=== PATIENT | female | born 1985 | race Caucasian/White ===

== ENCOUNTER 2017-03-09 11:40 | Outpatient (CLI) | payer OTHER ==
--- NOTE | 2017-03-09 16:31 | ULT ---
OBSTETRICAL ULTRASOUND: DATE: 03/09/17. COMPARISON: None. HISTORY: A 71-year-old female undergoing evaluation for size and dates. TECHNIQUE: Multiplanar, spencer scale, sonographic imaging of the gravid uterus obtained. FINDINGS: There is a single intrauterine gestation demonstrating a breech presentation and a heart rate of approximately 141 b.p.m. The placenta is located posteriorly demonstrating no evidence for place nta previa or abruption. Amniotic fluid volume is qualitatively normal. urinary bladder, umbilical cord insertion, and stomach appear unremarkable. Four-chamber hear t view is suboptimal despite multiple attempts at repeat imaging secondary to position and mov ement. spine appears grossly unremarkable. intracranial contents appear grossly unremarkable. Amniotic fluid index is approximately 13.7 cm. Region of the kidneys appears unremarkable. C ervical length is estimated at 4.9 cm. BIOMETRY: BPD 5.3 cm, 22 weeks 0 days HC 19.9 cm, 22 weeks 0 days AC 18.2 cm, 23 weeks 0 days FL 3.9 cm, 22 weeks 4 days. Based on ultrasound, gestational age is 22 weeks 1 day +/- 1 week 0 days. Estimated date of deliver y is 07/12/17. Estimated weight is 529 gm +/- 79 gm. IMPRESSION: Single intrauterine gestation as detailed above. Four-chamber heart view is suboptimal as detailed above. POS: TAMI
== END 2017-03-09 11:41 | disposition home or self-care (01) ==
LOC: NAV ULT 11:40
PROVIDERS: ATTEND Family Medicine
DX: Z34.02 Encounter for supervision of normal first pregnancy, second trimester (principal); Z3A.22 22 weeks gestation of pregnancy
CPT/HCPCS: 76805

== ENCOUNTER 2017-08-22 12:19 | Outpatient (CLI) | payer OTHER ==
--- NOTE | 2017-08-22 13:55 | RAD ---
RADIOGRAPH CHEST 2 VIEWS: HISTORY: A 32-year-old female with anterior chest wall pain. FINDINGS: The lungs are clear. The cardiomediastinal silhouette and hilar shadows are normal. There is no ple ural effusion. The osseous structures appear normal. There is no pneumothorax. IMPRESSION: Normal. jn [] POS: ANABELLE
== END 2017-08-22 12:20 | disposition home or self-care (01) ==
LOC: NAV RAD 12:19
PROVIDERS: ATTEND Family Medicine
DX: R07.89 Other chest pain (principal)
CPT/HCPCS: 71046

== ENCOUNTER 2023-05-03 14:23 | Emergency (ER) | payer OTHER | END 2023-05-03 15:40 | disposition home or self-care (01) | LOC: NAV ERS 14:23 | DX: S83.91XA Sprain of unspecified site of right knee, initial encounter (principal); I10 Essential (primary) hypertension; J45.909 Unspecified asthma, uncomplicated; W18.40XA Slipping, tripping and stumbling without falling, unspecified, initial encounter ==